=== PATIENT | female | born 1950 | race Caucasian/White ===

== ENCOUNTER → 2017-04-10 | Outpatient (CLI) | payer OTHER ==
[~2017-04-10] VITALS: Ht 165.1 cm; Wt 105.2 kg
[~2017-04-10] MED LIST: ALBU18002 INH; CHOL2000 PO; CHOL400C7 PO; CINN500C13 PO; CLOP1TAB15 PO; DOCU100C PO; FURO-85 PO; GARLTAB3 PO; GLCSUNK PO; GLIM2TAB PO; HYDC25 PO; LISI10TA PO; LSN25 PO; METF500T PO; MILK THISTLE PO; MILK1CAP9 PO; NIAC500T8 PO; OMEG10007 PO; OMEP20CA59 PO; OXYSR10 PO; PROB500T8 PO; SIMV20TA2 PO; SIMV40TA4 PO; STLS PO; TRAM-10 PO; VITA100C2 PO; ZNTT/150 PO
[2017-04-10 12:56] VITALS: Ht 165.1 cm; Wt 105.2 kg
--- NOTE | 2017-04-10 13:45 | PAT Medication Instructions ---
Service Date April 10, 2017. Current Home Medication List Albuterol Sulfate (Proair Respiclick), 2 PUFF INH Q4 PRN for SOB/Wheezing Cholecalciferol (Vitamin D 400 Iu), 400 INTER.UNIT PO QAM Cinnamon (Cinnamon Extract), 1,000 MG PO QAM Fish Oil ([place]-3), 1 CAP PO TID Furosemide (Lasix), 10 MG PO QAM Glimepiride (Amaryl), 0.5 TAB PO QPM Lisinopril (Prinivil *), 2.5 MG PO QAM Metformin Hcl (Glucophage), 500 MG PO BID Milk Thistle (Silybum Marianum (Milk Thistle), 1 CAP PO QAM Niacin (Niacin), 500 MG PO QAM Omeprazole (Prilosec), 20 MG PO QAM Probenecid (Benemid), 500 MG PO BID Simvastatin (Zocor), 20 MG PO QPM Stool Softener (Stool Softener), 100 MG PO QAM Tramadol (Ultram), 50 MG PO Q6H PRN for Pain [Garlic], 1,000 MG PO BID [Milk Thistle], 1,000 MG PO BID Medication Instructions For Your Scheduled Surgery - Hold the following medications 2 weeks prior to surgery: Garlic 1,000 MG PO BID Milk Thistle (Silybum Marianum (Milk Thistle), 1 CAP PO QAM Cinnamon (Cinnamon Extract), 1,000 MG PO QAM Fish Oil ([place]-3), 1 CAP PO TID - Hold the following medications 48 hours prior to surgery: Metformin Hcl (Glucophage), 500 MG PO BID - Hold the following medications day prior to and morning of surgery: Niacin (Niacin), 500 MG PO QAM - Hold the following medications the morning of surgery: Stool Softener (Stool Softener), 100 MG PO QAM Lisinopril (Prinivil *), 2.5 MG PO QAM Furosemide (Lasix), 10 MG PO QAM Cholecalciferol (Vitamin D 400 Iu), 400 INTER.UNIT PO QAM - Take the following medications the morning of surgery with a sip of water: Tramadol (Ultram), 50 MG PO Q6H PRN for Pain (can take up to four hours prior to surgery if needed) Omeprazole (Prilosec), 20 MG PO QAM Albuterol Sulfate (Proair Respiclick), 2 PUFF INH Q4 PRN for SOB/Wheezing ( if needed/bring with you to hospital on day of surgery) Probenecid (Benemid), 500 MG PO BID - Take the following medications as scheduled the night before surgery: Tramadol (Ultram), 50 MG PO Q6H PRN for Pain Simvastatin (Zocor), 20 MG PO QPM Albuterol Sulfate (Proair Respiclick), 2 PUFF INH Q4 PRN for SOB/Wheezing Glimepiride (Amaryl), 0.5 TAB PO QPM Probenecid (Benemid), 500 MG PO BID If you have any questions please call us at [phone] or [phone] ( [place]) or [phone]
[2017-04-10 14:13] LABS: URINE APPEARANCE CLEAR (CLEAR); URINE BILIRUBIN NEG (NEG); URINE COLOR YELLOW; URINE EPITHELIAL CELL AUTO >30 /lpf (0-5); URINE NITRITE NEG (NEG); URINE PH 5.5 (4.5-7.5); URINE SPECIFIC GRAVITY 1.011 (1.000-1.030); UROBILINOGEN NEG (NEG); ZZUR CULT IF INDIC CLEAN CATCH YES
[2017-04-10 14:13] LABS: PROTHROMBIN TIME (PATIENT) 10.6 SECONDS (9.0-12.0)
[2017-04-10 14:15] LABS: MANUAL MICROSCOPIC REQUIRED? NO; REVIEW REQ? NO
== END | disposition home or self-care (01) ==
LOC: C.LAB 08:00 → EDSTATUS 05-13 14:42
PROVIDERS: ATTEND Orthopaedic Surgery Sports Medicine
DX: Z01.818 Encounter for other preprocedural examination (principal); Z79.899 Other long term (current) drug therapy

== ENCOUNTER → 2017-08-19 | Outpatient (CLI) | payer OTHER ==
[~2017-08-19] MED LIST changes: -GLCSUNK PO; -HYDC25 PO; -MILK THISTLE PO; -OXYSR10 PO; -VITA100C2 PO
[2017-08-19 14:39] LABS: BASO % 0.6 %; BASO ABS # 0.04 K/uL (0-0.2); COMPLETE YES; EOS % 1.7 %; HEMATOCRIT 44.4 % (37-47); IG% 0.2 %; LYMPH % 30.2 %; LYMPH ABS # 1.97 K/uL (1.2-3.4); MEAN CELL VOLUME 93.7 fL (80-100); MEAN CORPUSCULAR HEMOGLOBIN 31.9 pg (25-34); MEAN PLATELET VOLUME 10.4 fL (7.4-10.4); MONO % 6.4 %; NEUT % 60.9 %; PLATELET COUNT 218 K/uL (130-400); RED BLOOD COUNT 4.74 M/uL (4.2-5.4); WHITE BLOOD COUNT 6.53 K/uL (4.8-10.8)
[2017-08-19 14:46] LABS: URINE APPEARANCE CLEAR (CLEAR); URINE BILIRUBIN NEG (NEG); URINE COLOR YELLOW; URINE EPITHELIAL CELL AUTO >30 /lpf (0-5); URINE NITRITE NEG (NEG); URINE PH 6.5 (4.5-7.5); URINE SPECIFIC GRAVITY 1.013 (1.000-1.030); UROBILINOGEN NEG (NEG); ZZUR CULT IF INDIC CLEAN CATCH NO
[2017-08-19 14:49] LABS: MANUAL MICROSCOPIC REQUIRED? NO; REVIEW REQ? NO
[2017-08-19 14:50] LABS: PARTIAL THROMBOPLASTIN RATIO 1.1; PROTHROMBIN TIME (PATIENT) 10.6 SECONDS (9.0-12.0)
== END | disposition home or self-care (01) ==
LOC: C.LAB 12:45
PROVIDERS: ATTEND Orthopaedic Surgery Sports Medicine
DX: Z01.818 Encounter for other preprocedural examination (principal)

== ENCOUNTER 2017-09-18 08:47 | Inpatient (IN) | payer OTHER ==
[2017-08-17 15:55] VITALS: BMI 37.0
--- NOTE | 2017-09-17 20:00 | HISTORY & PHYSICAL EXAMINATION ---
DATE OF ADMISSION: 09/18/2017 CHIEF COMPLAINT: Chronic left knee pain. HISTORY OF PRESENT ILLNESS: This is a 67-year-old female patient of Dr. Dalal complaining of chronic left hip pain, longstanding, now progressively getting worse. The patient has failed conservative treatment including narcotics, intra-articular injections. The patient cannot take anti-inflammatories. She has increased pain with weightbearing activities and her pain does interfere with her activities of daily living. PAST MEDICAL HISTORY: Hypertension, asthma, history of a mini stroke, diabetes mellitus, osteoarthritis, acid reflux, and obesity. SOCIAL HISTORY: Nonsmoker, nondrinker. PAST SURGICAL HISTORY: Gallbladder, back surgery, and right total knee replacement. FAMILY HISTORY: Noncontributory. REVIEW OF SYSTEMS: The patient complains of chronic left knee pain, otherwise denies any shortness of breath, chest pain, nausea, vomiting or any other joint complaints. MEDICATIONS: Include ranitidine 150 mg b.i.d. probenecid 500 mg b.i.d., metformin 500 mg twice daily, furosemide 20 mg 1/2 tablet daily, lisinopril 10 mg daily, glimepiride 2 mg 1/2 tablet daily, simvastatin 40 mg daily, Plavix 75 mg daily, tramadol 50 mg daily, over the counter stool softener, vitamin D3, milk thistle, and cinnamon. ALLERGIES: INCLUDE SHE HAS AN ALLERGY TO ASPIRIN AND ANTI-INFLAMMATORIES AND LIPITOR. PHYSICAL EXAMINATION: GENERAL: Well-developed, well-nourished 67-year-old female in no acute distress. She is alert and oriented x3 and pleasant. HEENT: Normocephalic, atraumatic. Extraocular motions are intact. Pupils are equal and reactive to light. HEART: Regular rate and rhythm, no murmurs appreciated. LUNGS: Clear. ABDOMEN: Soft, nontender, bowel sounds present. EXTREMITIES: Left knee reveals minus 5-120 degrees of range of motion. She has a varus deformity with a mild effusion. She has medial joint line tenderness, 5/5 strength. NEUROLOGIC: Neurovascularly, she is intact in her left lower extremity. DIAGNOSES: Left knee end-stage osteoarthritis, hypercholesterolemia, asthma, history of a mini stroke, diabetes mellitus, osteoarthritis, spine problems, neck problems, upper back problems, acid reflux, and obesity. PLAN: The patient was advised of her diagnosis. Indications, risks, benefits, and postop course have all been reviewed. The patient wishes to proceed with her left total knee arthroplasty. Necessary consent forms, preoperative testing and clearances will be obtained. BC
[2017-09-18] VITALS (11 sets, daily range): BP systolic 80–183; BP diastolic 49–104; PULSE 64–93; TEMP 36.2–36.7; O2SAT 80–100; Ht 165.1 cm; Wt 102.2 kg
[~2017-09-18] VITALS: Ht 165.1 cm; Wt 102.2 kg
[~2017-09-18 08:47] MED LIST changes: +ACETAMINOPHEN 500 MG TAB PO SCH; +BUPIVACAINE 0.25% 30 ML VIAL ONE; +BUPIVACAINE 0.5 % 5 MG/1 ML PF 10ML VIAL ONE; +CEFAZOLIN 2000MG IV PUSH 10 ML IV SCH; -CHOL400C7 PO; +FAMOTIDINE 20 MG TAB PO SCH; +GABAPENTIN 300 MG CAP PO SCH; -GARLTAB3 PO; +LACTATED RINGER'S 1000ML 1,000 ML IV SCH; +LACTATED RINGER'S 1000ML 500 ML IV ONE; +LACTATED RINGER'S 1000ML IV SCH; -LSN25 PO; +METOCLOPRAMIDE HCL 10 MG TAB PO SCH; -NIAC500T8 PO; -OMEG10007 PO; -OMEP20CA59 PO; +ROPIVACAINE 5MG/ML 30 ML 150 MG, BUPIVACAINE/EPINEPHR 0.5% MPF 30 ML, KETOROLAC TROMETH... INFIL SCH; -SIMV20TA2 PO; -STLS PO
[2017-09-18] MEDS ORDERED: ONDANSETRON INJ 2 MG/ML 2 ML VIAL ONE (08:55)
[2017-09-18] MEDS ORDERED: PROPOFOL IV EMULSION 10 MG/ML 20 ML VIAL IV ONE ×2 (08:55→11:47)
[2017-09-18] MEDS ORDERED: LIDOCAINE HCL 2% 2 ML VIAL (20MG/ML) ONE ×2 (08:55→11:47)
[2017-09-18] MEDS ORDERED: DEXAMETHASONE SOD INJ 4 MG/ML VIAL ONE (08:55)
[2017-09-18] MEDS ORDERED: FENTANYL CITRATE INJ 50 MCG/1 ML 2 ML VIAL ONE (08:55)
[2017-09-18] MEDS ORDERED: MIDAZOLAM HCL 1 MG/ML 2ML VIAL ONE ×3 (08:55→12:08)
--- NOTE | 2017-09-18 10:15 | History & Physical Bridge Note ---
H&P Re-Evaluation Bridge Note: I have examined the patient, reviewed the History & Physical and in the interval since the performance of the History & Physical I have noted the following changes of clinical significance: No changes noted
[2017-09-18] MEDS ORDERED: ORTHO JOINT ANESTHETIC ONE (10:27)
[2017-09-18] MEDS ORDERED: BACITRACIN 50000 UNIT VIAL ONE (10:27)
[2017-09-18] MEDS ORDERED: POVIDONE-IODINE OP SOLN 30 ML BTL ONE (10:27)
[2017-09-18] MEDS ORDERED: CEFAZOLIN SOD 1 GM VIAL ONE (11:15)
[2017-09-18] MEDS ORDERED: EpHEDrine SULFATE INJ 50 MG/ML AMP IV PRN (12:00)
[2017-09-18] MEDS ORDERED: ONDANSETRON INJ 2 MG/ML 2 ML VIAL IV PRN ×2 (12:00→13:00)
[2017-09-18] MEDS ORDERED: ATROPINE SULFATE 0.1 MG/ML 5ML SYR IV PRN (12:00)
[2017-09-18] MEDS ORDERED: HYDROmorphone INJ 2 MG/ML SYR/VIAL IV PRN (12:00)
[2017-09-18] MEDS ORDERED: PHENYLEPHRINE 100MCG/ML 5ML SYR IV PRN (12:00)
[2017-09-18] MEDS ORDERED: MAGNESIUM HYDROXIDE SUSP 30 ML UDC PO PRN (13:00)
[2017-09-18] MEDS ORDERED: ZOLPIDEM TARTRATE 5 MG TAB PO PRN (13:00)
[2017-09-18] MEDS ORDERED: MoRPHine SULFATE 2 MG/ML CARP IV PRN (13:00)
[2017-09-18] MEDS ORDERED: SOD PHOSPHATE/SOD BIPHOSPHATE ENEMA 132 ML BTL PR PRN (13:00)
[2017-09-18] MEDS ORDERED: OXYCODONE HCL IR 5 MG TAB (IMMEDIATE RELEASE) PO PRN (13:00)
[2017-09-18] MEDS ORDERED: BISACODYL 10 MG SUPP PR PRN (13:00)
--- NOTE | 2017-09-18 13:03 | [facility] Post Operative Brief Note ---
Immediate Operative Summary Operative Date Sep 18, 2017. Pre-Operative Diagnosis Left Knee End-Stage Osteoarthritis Post-Operative Diagnosis Left Knee End-Stage Osteoarthritis Procedure(s) Performed Left Total Knee Arthroplasty Surgeon Dr Gil Receiving Clerk Surgeon(s) Amos Ackerman PA-C Estimated Blood Loss 5CC Findings severe tricompartmental djd oa Specimens A: Left Knee Bone and Tissue Drains 2 hemovac Anesthesia spinal sedation Complication(s) None Disposition Recovery Room / PACU
--- NOTE | 2017-09-18 13:45 | OPERATIVE REPORT ---
DATE OF OPERATION: 09/18/2017 INDICATION FOR PROCEDURE: The patient is a 67-year-old female who presents with chronic progressive osteoarthritis of left knee. She had a right knee replacement and did well with that. Now presents for left knee replacement at this time. Radiographs demonstrate tricompartmental DJD, [id number] medial compartment, varus knee. PREOPERATIVE DIAGNOSIS: End-stage osteoarthritis, left knee. POSTOPERATIVE DIAGNOSIS: End-stage osteoarthritis, left knee. PROCEDURE: Left total knee arthroplasty. SURGEON: Catarino Gil MD. TALENT COORDINATOR: DAISY Garner. ANESTHESIA: Spinal, adductor nerve block and Orthomix. OPERATIVE PROCEDURE: The patient was taken to the operating room, anesthetized under spinal IV sedation. She was placed supine on the operating room table. Pneumatic tourniquet was placed about her obese upper left thigh. Her left lower extremity was prepped and draped in sterile fashion. Knee exam demonstrated she had a 5 degree flexion contracture and flexion to 120 degrees. She had a small type old scar from old trauma years ago right at the tibial tubercle area. The leg was elevated, exsanguinated with Esmarch bandage. Pneumatic tourniquet was raised to 350 mmHg because of the obesity. Skin was incised sharply in a longitudinal fashion. Subcutaneous flaps were elevated. Incision was made through medial retinaculum and extended up in the mid third of the quadriceps tendon and extended down to the medial tibial tubercle. Intraarticular findings demonstrated tricompartmental severe DJD, notch stenosis, chronic ACL tear and chronic medial meniscus tear. She is bone on bone in both medial and lateral compartments and advanced patellofemoral DJD and large osteophytes all compartments. Attention was taken to exposing the knee. The infrapatellar fat pad was resected. The lateral synovial bands were released. The meniscal remnants were resected and the PCL was released and later resected. The fat pad over the anterior femur for placement of the component was resected in order to place our custom cutting guide. After proper retraction, the custom femoral cutting block was pinned in position. We used the Early & Nephew Journey 2.0, total knee arthroplasty system using Fastacashe MR templating, which she was templated for a 4 femur and 3 tibia. With the custom femoral cutting block, pinned in position, a distal femoral cut was made, then we extended the knee, did a subperiosteal peel around the patella and did a measurement with a caliper and then reproduced the width using a freehand cut technique and a 35 patella component. The drill holes were made for the patella component. A small excess lateral facet was beveled off to prevent any impingement. The retraction was placed about the femur again and 4 size cutting block was pinned in place and then the anterior, posterior and chamfer cuts were made. Then the tibia was subluxed and the custom tibial cutting block was pinned in position. The proximal tibial cut was made. Then we assessed ligamentous balance and she needed releases medially which required posteromedial release. There were lot of large osteophytes around the posterior medial tibia that were resected. At this time, the tibia was re-exposed and the 3 tibial trial was externally rotated in line with the tibial tubercle, pinned in position. The punch for the stem was used. Then a 4 femoral trial was inserted, centered and the notch cutting devices were used. We assessed ligaments balance and the MCL was still tight well to the lateral. So we used the lamina bridges and buildings supervisor between the components and then did a minor pie crusting of the MCL to get the appropriate balance. Then a trial reduction with a 30 high flex poly insert trial gave balanced ligaments through full range of motion and the patella tracked centrally. The trials were removed and then the anesthetic cocktail was injected per protocol. Then the knee was copiously irrigated with pulsatile lavage and antibiotic solution and bacitracin. The final components were cemented with Simplex G cement. Final components were the 4 Oxinium Early & Nephew posterior stabilized left femoral component Journey 2.0. The 3 tibial baseplate, the 30 mm high flex poly insert and then the 35 mm dome patella. While the cement cured, we used Betadine soak. Then the knee was again copiously irrigated with antibiotic solution and bacitracin. Two drains were brought out laterally. These connected to Hemovac. The quadriceps tendon and medial retinaculum were then closed with interrupted [id number] #1 Vicryl sutures and the subcutaneous tissues were injected with some of the Orthomix and then closed with interrupted 2-0 Vicryl, skin was closed with solis, sterile dressings applied and the patient tolerated the procedure well. The patient had 0 through 135 degrees range of motion at the completion of the procedure. We also did check the suture closure through full range of motion and the repair was secure. We did use a Silverlon dressing after the staple closure. DAISY Garner was my golf player assistant. He functioned as golf player assistant through the entire procedure. He assisted in soft tissue retraction, instrument management, leg positioning and assisted in the subcutaneous skin closure and would participate in postoperative care of the patient. I attest to the content of the Intraoperative Record and any orders documented therein. Any exception s are noted below.
--- NOTE | 2017-09-18 13:51 | DIAGNOSTIC IMAGING REPORT ---
TWO VIEWS LEFT KNEE CLINICAL HISTORY: Postoperative examination. FINDINGS: AP and crosstable lateral portable views of the left knee are obtained. A left knee arthroplasty is in near anatomic alignment. There has been undersurface remodeling of the patella. No acute fracture is seen. There are expected postoperative changes around the knee including skin clips, a surgical drain, soft tissue edema, and subcutaneous gas. IMPRESSION: Expected postoperative changes status post left knee arthroplasty. No acute fracture is seen. Electronically signed by: Sukh Waller M.D. 09/18/2017 1:50 PM Dictated Date/Time: 09/18/2017 1:50 PM
--- NOTE | 2017-09-18 14:02 | Anesthesiology Progress Note ---
Anesthesia Post Op Note Date & Time Sep 18, 2017 at 14:02 Vital Signs Pain Intensity: 0 Vital Signs Past 12 Hours Date Time Temp Pulse Resp B/P (MAP) Pulse Ox O2 Delivery O2 Flow Rate FiO2 09/18/17 13:40 36.2 63 16 154/91 99 Nasal Cannula 2 09/18/17 13:35 36.2 63 16 164/97 99 Nasal Cannula 2 09/18/17 13:25 64 16 174/92 100 Nasal Cannula 2 09/18/17 13:15 63 16 177/92 100 Nasal Cannula 2 09/18/17 13:05 66 16 169/92 99 Nasal Cannula 2 09/18/17 12:57 36.4 72 16 154/93 100 Nasal Cannula 2 09/18/17 09:16 36.7 79 18 158/99 98 Room Air Notes Mental Status: alert / awake / arousable, participated in evaluation Pt Amnestic to Procedure: Yes Nausea / Vomiting: adequately controlled Pain: adequately controlled Airway Patency, RR, SpO2: stable & adequate BP & HR: stable & adequate Hydration State: stable & adequate Anesthetic Complications: no major complications apparent
[2017-09-18] MEDS: SODIUM CHLORIDE 0.9% 1000ML 1,000 ML IV SCH ×2 (15:11→23:26)
[2017-09-18] MEDS ORDERED: GLUCOSE 10 TABS/TUBE PO PRN ×2 (15:15)
[2017-09-18] MEDS ORDERED: GLUCAGON FOR INJ 1 MG VIAL SQ PRN ×2 (15:15)
[2017-09-18] MEDS ORDERED: ALBUTEROL HFA 8 GM INHALER INH PRN (15:15)
[2017-09-18] MEDS ORDERED: DEXTROSE 50% 50 ML SYR IV PRN ×2 (15:15)
[2017-09-18] MEDS ORDERED: GLUCOSE 40% GEL 15 GM TUBE PO PRN ×2 (15:15)
--- NOTE | 2017-09-18 15:24 | Medical Consult ---
Consultation Date of Consultation: Sep 18, 2017. Attending Physician: Catarino Gil M.D. Reason for Consultation: Post Op Medical Management History of Present Illness 67 year old female who is s/p left TKA today by Dr. Gil. Patient reports increasing left knee pain that failed outpatient conservative measures. She therefore presented for the planned procedure today. Post operatively the patient is doing well. She reports her pain is well controlled. She reports some mild residual numbness to the lower extremities. She denies chest pain and shortness of breath. She reports she had some mild lightheadedness that resolved once she had something to eat. No abdominal pain, nausea, or vomiting. She reports she has voided since surgery. Past Medical/Surgical History Medical Problems: (1) Asthma Status: Chronic (2) DM type 2 (diabetes mellitus, type 2) Status: Chronic (3) GERD (gastroesophageal reflux disease) Status: Chronic (4) Gout Status: Chronic (5) HTN (hypertension) Status: Chronic (6) TIA (transient ischemic attack) Status: Chronic Surgical Problems: (1) H/O tubal ligation Status: Chronic (2) History of back surgery Status: Chronic (3) History of cholecystectomy Status: Chronic (4) Status post total knee replacement, right Status: Chronic Family History Diabetes mellitus BROTHER SISTER FH: CAD (coronary artery disease) FATHER FH: kidney cancer MOTHER Social History Smoking Status: Never Smoker Alcohol Use: none Marital Status: Housing Status: lives with family Allergies Coded Allergies: Aspirin (Verified Allergy, Unknown, HIVES, LOW BLOOD PRESSURE, THROAT SWELLING, 09/18/17) Atorvastatin (Verified Allergy, Unknown, ELEVATED LFT'S, 09/18/17) NSAIDs (Verified Allergy, Unknown, HIVES, LOW BLOOD PRESSURE, THROAT SWELLING, 09/18/17) Home Medications Zantac (Ranitidine HCl) 150 Mg Tab 150 Mg PO BID TAKE DAY OF SURGERY Plavix (Clopidogrel Bisulfate) 75 Mg Tab 75 Mg PO QAM WILL STOP 7 DAYS PRIOR TO SURGERY PER FAMILY Zocor (Simvastatin) 40 Mg Tab 1 Tab PO HS 30 Days Stool Softener (Docusate Sodium) 100 Mg Cap 1 Tab PO QPM HOLD DAY OF SURGERY Vitamin D3 (Cholecalciferol) 2,000 Unit Cap 1 Cap PO QAM 30 Days HOLD DAY OF SURGERY Prinivil (Lisinopril) 10 Mg Tab 1 Tab PO QAM 90 Days HOLD DAY OF SURGERY Proair Respiclick (Albuterol Sulfate) 108 Mcg/Act Aer 2 Puff INH Q4 PRN BRING ON DAY OF SURGERY Cinnamon Extract (Cinnamon) 500 Mg Cap 1,000 Mg PO QAM STOP 2 WEEKS BEFORE SURGERY Milk Thistle (Milk Thistle (Silybum Marianum) 1,000 Mg Cap 2 Cap PO QAM STOP 2 WEEKS BEFORE SURGERY Ultram (Tramadol HCl) 50 Mg Tab 50 Mg PO Q6H PRN MAY TAKE DAY OF SURGERY Lasix (Furosemide) 20 Mg Tab 10 Mg PO QAM HOLD DAY OF SURGERY Benemid (Probenecid) 500 Mg Tab 500 Mg PO BID TAKE DAY OF SURGERY Amaryl (Glimepiride) 2 Mg Tab 0.5 Tab PO QPM Glucophage (Metformin Hcl) 500 Mg Tab 500 Mg PO BID HOLD 48 HOURS BEFORE SURGERY Current Inpatient Medications Current Inpatient Medications Medications (Trade) Dose Ordered Sig/Elicia Route Start Time Stop Time Status Last Admin Dose Admin Lactated Ringer's 1,000 ml @ 15 mls/hr Q24H IV 09/18/17 06:00 09/19/17 05:59 09/18/17 10:01 15 MLS/HR Lactated Ringer's 1,000 ml @ 60 mls/hr [id number] IV 09/18/17 06:00 09/18/17 22:39 Acetaminophen (Tylenol Tab) 1,000 mg PREOP PO 09/18/17 06:00 09/18/17 18:00 09/18/17 09:43 1,000 MG Famotidine (Pepcid Tab) 20 mg PREOP PO 09/18/17 06:00 09/18/17 18:00 09/18/17 09:43 20 MG Gabapentin (Neurontin Cap) 300 mg PREOP PO 09/18/17 06:00 09/18/17 18:00 09/18/17 09:42 300 MG Metoclopramide HCl (Reglan Tab) 10 mg PREOP PO 09/18/17 06:00 09/18/17 18:00 09/18/17 09:42 10 MG Cefazolin Sodium 10 ml @ 2.5 mls/min PREOP IV 09/18/17 06:00 09/18/17 18:00 Ondansetron HCl (Zofran Inj) 4 mg ONE PRN IV 09/18/17 12:00 09/18/17 17:00 Atropine Sulfate (Atropine Sulfate 0.1MG/Ml Inj) 0.5 mg Q1M PRN IV 09/18/17 12:00 09/18/17 17:00 Ephedrine Sulfate (EpHEDrine SULFATE INJ) 5 mg Q5M PRN IV 09/18/17 12:00 09/18/17 17:00 Hydromorphone HCl (Dilaudid Inj) 0.25 mg Q5M PRN IV 09/18/17 12:00 09/18/17 17:00 Phenylephrine HCl (Kevon-Synephrine 500MCG/5ML Syr) 100 mcg Q5M PRN IV 09/18/17 12:00 09/18/17 17:00 Clopidogrel Bisulfate (plAVix TAB) 75 mg QAM PO 09/19/17 09:00 10/19/17 08:59 Docusate Sodium (coLACE CAP) 100 mg QPM PO 09/18/17 21:00 10/18/17 20:59 Furosemide (Lasix Tab) 10 mg QAM PO 09/19/17 09:00 10/19/17 08:59 Lisinopril (Zestril Tab) 10 mg QAM PO 09/19/17 09:00 10/19/17 08:59 Probenecid (Probenecid Tab) 500 mg BID PO 09/18/17 21:00 10/18/17 20:59 Simvastatin (Zocor Tab) 40 mg HS PO 09/18/17 21:00 10/18/17 20:59 UNV Albuterol (Ventolin Hfa Inhaler) 2 puffs Q4H PRN INH 09/18/17 15:15 10/18/17 15:14 Cholecalciferol (Vitamin D Tab) 2,000 inter.unit QAM PO 09/19/17 09:00 10/19/17 08:59 Sodium Chloride 1,000 ml @ 100 mls/hr Q10H IV 09/18/17 15:30 09/19/17 15:29 09/18/17 15:11 100 MLS/HR Cefazolin Sodium 2000 mg/Syringe 10 ml @ 2.5 mls/min Q8H IV 09/18/17 18:00 09/19/17 02:03 Oxycodone HCl (Roxicodone Immediate Rel Tab) 1 TABLET FOR PAIN RATING... Q4H PRN PO 09/18/17 13:00 10/02/17 12:59 Morphine Sulfate (MoRPHine SULFATE INJ) as above Q2H PRN IV 09/18/17 13:00 10/02/17 12:59 UNV Acetaminophen (Tylenol Tab) 1,000 mg Q8 PO 09/18/17 22:00 10/18/17 21:59 Magnesium Hydroxide (Milk Of Magnesia Susp) 30 ml Q6H PRN PO 09/18/17 13:00 10/18/17 12:59 Bisacodyl (Dulcolax Supp) 10 mg DAILY PRN [place] 09/18/17 13:00 10/18/17 12:59 Sodium Biphosphate/ Sodium Phosphate (Fleet Enema) 132 ml DAILY PRN [place] 09/18/17 13:00 10/18/17 12:59 Diphenhydramine HCl (Benadryl Cap) 25 mg Q8H PRN PO 09/18/17 13:00 10/18/17 12:59 Zolpidem Tartrate (Ambien Tab) 5 mg HSZ PRN PO 09/18/17 13:00 10/18/17 12:59 Multivitamins (Multivitamin Tab) 1 tab QAM PO 09/19/17 09:00 10/19/17 08:59 UNV Ondansetron HCl (Zofran Inj) 4 mg Q6H PRN IV 09/18/17 13:00 10/18/17 12:59 Pantoprazole Sodium (Protonix Tab) 40 mg QAM PO 09/19/17 09:00 10/19/17 08:59 UNV Tramadol HCl (Ultram Tab) 1 tablet for pain rating... Q4H PRN PO 09/18/17 13:00 10/18/17 12:59 Rivaroxaban (Xarelto Tab) 10 mg Q24H PO 09/19/17 06:00 10/01/17 05:59 UNV Insulin Aspart (novoLOG ASPART) SLIDING SCALE If C... ACHS SC 09/18/17 17:15 10/18/17 17:14 Glucose (Glucose 40% Gel) 15-30 GRAMS 15 GRAMS... UD PRN PO 09/18/17 15:15 10/18/17 15:14 Glucose (Glucose Chew Tab) 4-8 Tablets 4 Tabl... UD PRN PO 09/18/17 15:15 10/18/17 15:14 Dextrose (Dextrose 50% 50ML Syringe) 25-50ML OF 50% DW IV FOR... UD PRN IV 09/18/17 15:15 10/18/17 15:14 Glucagon (Glucagon Inj) 1 mg UD PRN SQ 09/18/17 15:15 10/18/17 15:14 Review of Systems Constitutional- no fever; no weight loss Eyes- no acute visual changes ENT- no sinus drainage; no pharyngitis Pulmonary- no cough, no wheezing, no shortness of breath Cardiac- no chest pain, no palpitations, no orthopnea, no dependent edema GI- no nausea, no vomiting, no diarrhea, no melena, no hematochezia - no dysuria, no hematuria Musculoskeletal- (+) as noted above Derm- no rashes, no new skin lesions, no changing skin lesions Hematologic- no unusual bruising, no unusual bleeding Lymphatics- no adenopathy Endocrine- no polyuria or polydipsia; no heat or cold intolerance Neuro- no headaches, no focal neurologic symptoms Psych- no anxiety, no depression Physical Exam Date Time Temp Pulse Resp B/P (MAP) Pulse Ox O2 Delivery O2 Flow Rate FiO2 09/18/17 15:00 36.2 93 16 130/92 (105) 100 Nasal Cannula 3.0 09/18/17 14:28 36.3 82 16 123/84 (97) 100 Nasal Cannula 2.0 09/18/17 14:00 100 Nasal Cannula 2.0 09/18/17 14:00 Nasal Cannula 09/18/17 14:00 36.4 74 16 154/90 (111) 100 Nasal Cannula 2.0 09/18/17 13:40 36.2 63 16 154/91 99 Nasal Cannula 2 09/18/17 13:35 36.2 63 16 164/97 99 Nasal Cannula 2 09/18/17 13:25 64 16 174/92 100 Nasal Cannula 2 09/18/17 13:15 63 16 177/92 100 Nasal Cannula 2 09/18/17 13:05 66 16 169/92 99 Nasal Cannula 2 09/18/17 12:57 36.4 72 16 154/93 100 Nasal Cannula 2 09/18/17 09:16 36.7 79 18 158/99 98 Room Air General Appearance: WD/WN, no apparent distress Head: normocephalic, atraumatic Eyes: normal inspection, EOMI, sclerae normal ENT: hearing grossly normal, + pertinent finding (moist mucous membranes) Neck: supple, no JVD, trachea midline Respiratory/Chest: lungs clear, normal breath sounds, no respiratory distress Cardiovascular: regular rate, rhythm, no edema, normal peripheral pulses Abdomen/GI: normal bowel sounds, non tender, soft, no organomegaly Extremities/Musculoskelatal: normal capillary refill, + pertinent finding (s/p left knee surgery, surgical dressing intact, drain in place draining bloody drainage; CSM checks intact to LLE) Neurologic/Psych: no motor/sensory deficits, alert, normal mood/affect, oriented x 3 Skin: normal color, warm/dry Laboratory Results Last 24 Hours Test 09/18/17 09:30 09/18/17 13:17 Bedside Glucose 108 mg/dl 81 mg/dl Assessment & Plan S/P LEFT TKA - POD#0 - activity and wound care orders as per ortho - pain control with bowel regimen - PT/OT - monitor H/H for acute blood loss anemia and transfuse blood products PRN DM - hgb a1c 5.7 06/2017 - hold oral agents and utilize SSI while hospitalized HTN - BP on the low side hold Lasix and Lasix HX TIA - continue Plavix (ok by ortho) and statin DVT PROPHYLAXIS - Xarelto per ortho Thank you for this consultation. We will follow the patient with you during their hospital stay. You can reach a member of the Orthopaedic Hospitalist Team 22/06 via pager @ . ATTENDING ADDENDUM care coordinated with AUDRA Moon please refer to her notes for full details, I agree with her notes patient seen and examined, records reviewed by myself as well on exam, patient seen resting in bed, comfortable no other symptoms VS noted and reviewed oriented x 2, not in distress, speaks in sentences with no effort nor accessory muscle use normal rate, regular rhythm, no murmurs clear breath sounds bilaterally non distended, soft, nontender no bipedal edema, erythema, warmth no neuro deficits ASSESSMENT/PLAN> HYPOTENSION - likely from Oxycodone - hold Oxy, Morphine hold Lasix, Lisinopril - 500cc NSS bolus ordered NSS increased to 125cc/hr complete bedrest ordered for tonight - will monitor closely DM 2 - hold metformin and glimepiride - ISS for now other diagnoses and plan of care as per AUDRA Moon's notes Lexa Leigh MD
[2017-09-18] MEDS ORDERED: INFLUENZA ADMINISTRATION CHARGE ONE (15:45)
[2017-09-18] MEDS ORDERED: MoRPHine SULFATE 4 MG/ML 1 ML CARP\\VIAL IV PRN (15:45)
[2017-09-18] MEDS ORDERED: INFLUENZA VACCINE HIGH DOSE 65+ 0.5 ML SYR IM. ONE (15:45)
[2017-09-18] MEDS ORDERED: INSULIN ASPART 100 UNITS/ML 3 ML PEN SC SCH (16:00)
[2017-09-18 16:15] LABS: CREATININE 0.8 mg/dl (0.60-1.20)
[2017-09-18] MEDS: INSULIN ASPART 100 UNITS/ML 3 ML PEN SC SCH ×2 (17:15→21:00)
[2017-09-18] MEDS ORDERED: SODIUM CHLORIDE 0.9% 500ML 500 ML IV SCH (19:15)
[2017-09-18] MEDS: CEFAZOLIN IV 2,000 MG in SYRINGE 0 ML IV SCH (19:21)
[2017-09-18] MEDS ORDERED: DOCUSATE SODIUM 100 MG CAP PO SCH (21:00)
[2017-09-18] MEDS: DOCUSATE SODIUM 100 MG CAP PO SCH (21:05)
[2017-09-18] MEDS: ACETAMINOPHEN 500 MG TAB PO SCH (21:06)
[2017-09-18] MEDS: PROBENECID 500 MG TAB PO SCH (21:06)
[2017-09-18] MEDS: SIMVASTATIN 40 MG TAB PO SCH (21:06)
[2017-09-19] MEDS: CEFAZOLIN IV 2,000 MG in SYRINGE 0 ML IV SCH (02:55)
[2017-09-19 03:14] VITALS: BP 131/78; PULSE 73; TEMP 36.5; O2SAT 99
[2017-09-19] MEDS: ACETAMINOPHEN 500 MG TAB PO SCH ×3 (06:00→21:29)
[2017-09-19] MEDS ORDERED: RIVAROXABAN 10 MG TAB PO SCH (06:00)
[2017-09-19 07:10] VITALS: BP 135/88; PULSE 75; TEMP 36.7; O2SAT 98
[2017-09-19] MEDS: SODIUM CHLORIDE 0.9% 1000ML 1,000 ML IV SCH (07:35)
[2017-09-19 07:50] LABS: HEMATOCRIT 33.9 % (37-47); MEAN CELL VOLUME 93.6 fL (80-100); MEAN CORPUSCULAR HEMOGLOBIN 30.9 pg (25-34); MEAN PLATELET VOLUME 10.1 fL (7.4-10.4); PLATELET COUNT 198 K/uL (130-400); RED BLOOD COUNT 3.62 M/uL (4.2-5.4); WHITE BLOOD COUNT 7.64 K/uL (4.8-10.8)
[2017-09-19 08:12] LABS: BUN/CREATININE RATIO 17.2 (10-20); CALCIUM 8.2 mg/dl (8.5-10.1); CREATININE 0.97 mg/dl (0.60-1.20); POTASSIUM 3.5 mmol/L (3.5-5.1)
--- NOTE | 2017-09-19 08:32 | Orthopedic Progress Note ---
Orthopedic Progress Note Date of Service Sep 19, 2017. Subjective Post OP Day: 1 Reports: feeling well, calf pain, pain controlled w PO medications, Denies: chest pain, SOB, nausea / vomiting, light headedness Additional Notes: Patient had episode of lightheadedness yesterday, no fall, isolated incident. Medicine D/C'd narcs and will continue tramadol prn, patient states knee is with minimal pain however she is having persistent calf pain which is her only c /o. Objective N/V intact, capillary refill less than 2 sec., dressing C/D/I, A&O x3, toes mobile Pain with calf palpation, neg homans. Date Time Temp Pulse Resp B/P (MAP) Pulse Ox O2 Delivery O2 Flow Rate FiO2 09/19/17 07:10 36.7 75 20 135/88 (104) 98 Room Air 09/19/17 03:14 36.5 73 18 131/78 (95) 99 Room Air 09/18/17 23:15 Room Air 09/18/17 22:48 36.7 64 16 104/66 (79) 97 Room Air 09/18/17 20:27 36.3 66 16 130/82 (98) 99 Room Air 09/18/17 18:25 90/62 (71) 09/18/17 17:20 80/49 (59) 09/18/17 17:07 36.3 88 16 148/94 (112) 97 Room Air 09/18/17 16:15 Room Air 09/18/17 16:00 36.4 75 16 133/85 (101) 100 Nasal Cannula 2.0 09/18/17 15:25 80/49 (59) 09/18/17 15:00 36.2 93 16 130/92 (105) 100 Nasal Cannula 3.0 09/18/17 14:28 36.3 82 16 123/84 (97) 100 Nasal Cannula 2.0 09/18/17 14:00 100 Nasal Cannula 2.0 09/18/17 14:00 Nasal Cannula 09/18/17 14:00 36.4 74 16 154/90 (111) 100 Nasal Cannula 2.0 09/18/17 13:40 36.2 63 16 154/91 99 Nasal Cannula 2 09/18/17 13:35 36.2 63 16 164/97 99 Nasal Cannula 2 09/18/17 13:25 64 16 174/92 100 Nasal Cannula 2 09/18/17 13:15 63 16 177/92 100 Nasal Cannula 2 09/18/17 13:05 66 16 169/92 99 Nasal Cannula 2 09/18/17 12:57 36.4 72 16 154/93 100 Nasal Cannula 2 09/18/17 09:16 36.7 79 18 158/99 98 Room Air Laboratory Results 24 Hours: Test 09/19/17 06:56 Hematocrit 33.9 % Hemoglobin 11.2 g/dL Assessment & Plan Assessment: POD #1, Left TKA Plan: PT/ OT DVT proph- Plavix D/C planning- Home w OPPT As per medicine Will check venous doppler. Inhouse Planning Pain Management: Ultram, PO Tylenol DVT Prophylaxis: TEDs, SCDs, other (Plavix) Discharge Planning Discharge Planning: home with oppt Pain Management: Ultram, PO Tylenol DVT Prophylaxis: TEDs, other (Plavix) Therapy: Physical Therapy, Occupational Therapy
[2017-09-19] MEDS: MULTIVITAMIN TAB PO SCH (08:41)
[2017-09-19] MEDS: PROBENECID 500 MG TAB PO SCH ×2 (08:41→20:33)
[2017-09-19] MEDS: CLOPIDOGREL BISULFATE 75 MG TAB PO SCH (08:41)
[2017-09-19] MEDS: PANTOprazole SOD 40 MG TAB PO SCH (08:42)
[2017-09-19] MEDS: CHOLECALCIFEROL 1000 INTER.UNIT TAB PO SCH (08:42)
[2017-09-19] MEDS: INSULIN ASPART 100 UNITS/ML 3 ML PEN SC SCH ×4 (08:45→20:33)
[2017-09-19] MEDS ORDERED: CINNAMON 1000 MG PO SCH (09:00)
[2017-09-19] MEDS ORDERED: FUROSEMIDE 20 MG TAB PO SCH (09:00)
[2017-09-19] MEDS ORDERED: LISINOPRIL 10 MG TAB PO SCH (09:00)
--- NOTE | 2017-09-19 10:01 | DIAGNOSTIC IMAGING REPORT ---
ULTRASOUND LEFT LOWER EXTREMITY VENOUS CLINICAL HISTORY: Calf pain and swelling status post left knee arthroplasty. COMPARISON STUDY: No priors. TECHNIQUE: Real-time, grayscale, and color Doppler sonography of the deep veins of the left lower extremity was performed from the inguinal crease to the calf. Compression and augmentation were utilized. FINDINGS: There is no sonographic evidence of deep venous thrombosis identified in the left lower extremity. The common femoral, superficial femoral, and popliteal veins are patent and normally compressible. The greater saphenous vein and the profunda femoris vein at the junction with the common femoral vein are clear. The visualized calf veins are patent. IMPRESSION: There is no sonographic evidence of deep venous thrombosis identified in the left lower extremity. Electronically signed by: Sukh Waller M.D. 09/19/2017 10:00 AM Dictated Date/Time: 09/19/2017 10:00 AM
[2017-09-19 11:35] VITALS: BP 142/85; PULSE 84; TEMP 36.7; O2SAT 100
[2017-09-19 15:32] VITALS: BP 144/85; PULSE 86; TEMP 36.5; O2SAT 100
[2017-09-19] MEDS ORDERED: LISINOPRIL 10 MG TAB PO ONE (16:06)
--- NOTE | 2017-09-19 16:18 | Progress Note ---
Medicine Progress Note Date & Time of Visit: Sep 19, 2017 at 16:10. Subjective seen resting in bed, in good spirits states she feels much better today denies dizziness, headache, nausea, chest pain, dyspnea, abdominal pain denies other symptoms Objective Last 8 Hrs Date Time Temp Pulse Resp B/P (MAP) Pulse Ox O2 Delivery O2 Flow Rate FiO2 09/19/17 15:32 36.5 86 16 144/85 (104) 100 Room Air 09/19/17 11:35 36.7 84 17 142/85 (104) 100 Room Air Physical Exam: General- oriented x 3, not in distress, speaks in sentences with no effort Head- atraumatic Eyes- EOMI, anicteric Neck- no JVD Lungs- clear breath sounds bilaterally Heart- regular rhythm; no murmur, normal rate Abdomen- normal bowel sounds, soft, nontender Extremities- no pretibial edema, no calf tenderness Neuro- alert, oriented x 3; no gross focal deficits Skin- warm & dry Laboratory Results: Last 24 Hours Test 09/18/17 17:25 09/18/17 20:35 09/19/17 06:56 09/19/17 08:28 Bedside Glucose 122 mg/dl 120 mg/dl 138 mg/dl White Blood Count 7.64 K/uL Red Blood Count 3.62 M/uL Hemoglobin 11.2 g/dL Hematocrit 33.9 % Mean Corpuscular Volume 93.6 fL Mean Corpuscular Hemoglobin 30.9 pg Mean Corpuscular Hemoglobin Concent 33.0 g/dl RDW Standard Deviation 43.3 fL RDW Coefficient of Variation 12.6 % Platelet Count 198 K/uL Mean Platelet Volume 10.1 fL Sodium Level 138 mmol/L Potassium Level 3.5 mmol/L Chloride Level 104 mmol/L Carbon Dioxide Level 26 mmol/L Anion Gap 8.0 mmol/L Blood Urea Nitrogen 17 mg/dl Creatinine 0.97 mg/dl Est Creatinine Clear Calc Drug Dose 65.8 ml/min Estimated GFR () 69.6 Estimated GFR (Non- 60.0 BUN/Creatinine Ratio 17.2 Random Glucose 110 mg/dl Calcium Level 8.2 mg/dl Test 09/19/17 11:47 Bedside Glucose 92 mg/dl Assessment & Plan S/P LEFT TKA - POD#1 - hypotension resolved resume lisinopril, but hold lasix for now continue IV fluids - monitor Hg DM - hgb a1c 5.7 06/2017 - ISS for now HTN - management per #1 HX TIA - continue Plavix (ok by ortho) and statin DVT PROPHYLAXIS - Xarelto per ortho Thank you for this consultation. We will follow the patient with you during their hospital stay. You can reach a member of the [facility] Hospitalist Team 22/06 via pager @ . Current Inpatient Medications: Current Inpatient Medications Medications (Trade) Dose Ordered Sig/Elicia Route Start Time Stop Time Status Last Admin Dose Admin Clopidogrel Bisulfate (plAVix TAB) 75 mg QAM PO 09/19/17 09:00 10/19/17 08:59 09/19/17 08:41 75 MG Docusate Sodium (coLACE CAP) 100 mg QPM PO 09/18/17 21:00 10/18/17 20:59 09/18/17 21:05 100 MG Probenecid (Probenecid Tab) 500 mg BID PO 09/18/17 21:00 10/18/17 20:59 09/19/17 08:41 500 MG Simvastatin (Zocor Tab) 40 mg HS PO 09/18/17 21:00 10/18/17 20:59 09/18/17 21:06 40 MG Albuterol (Ventolin Hfa Inhaler) 2 puffs Q4H PRN INH 09/18/17 15:15 10/18/17 15:14 Cholecalciferol (Vitamin D Tab) 2,000 inter.unit QAM PO 09/19/17 09:00 10/19/17 08:59 09/19/17 08:42 2,000 INTER.UNIT Acetaminophen (Tylenol Tab) 1,000 mg Q8 PO 09/18/17 22:00 10/18/17 21:59 09/19/17 13:33 1,000 MG Magnesium Hydroxide (Milk Of Magnesia Susp) 30 ml Q6H PRN PO 09/18/17 13:00 10/18/17 12:59 Bisacodyl (Dulcolax Supp) 10 mg DAILY PRN VT 09/18/17 13:00 10/18/17 12:59 Sodium Biphosphate/ Sodium Phosphate (Fleet Enema) 132 ml DAILY PRN VT 09/18/17 13:00 10/18/17 12:59 Diphenhydramine HCl (Benadryl Cap) 25 mg Q8H PRN PO 09/18/17 13:00 10/18/17 12:59 Zolpidem Tartrate (Ambien Tab) 5 mg HSZ PRN PO 09/18/17 13:00 10/18/17 12:59 Multivitamins (Multivitamin Tab) 1 tab QAM PO 09/19/17 09:00 10/19/17 08:59 09/19/17 08:41 1 TAB Ondansetron HCl (Zofran Inj) 4 mg Q6H PRN IV 09/18/17 13:00 10/18/17 12:59 Pantoprazole Sodium (Protonix Tab) 40 mg QAM PO 09/19/17 09:00 10/19/17 08:59 09/19/17 08:42 40 MG Tramadol HCl (Ultram Tab) 1 tablet for pain rating... Q4H PRN PO 09/18/17 13:00 10/18/17 12:59 Insulin Aspart (novoLOG ASPART) SLIDING SCALE If C... ACHS SC 09/18/17 17:15 10/18/17 17:14 09/19/17 13:10 1 UNITS Glucose (Glucose 40% Gel) 15-30 GRAMS 15 GRAMS... UD PRN PO 09/18/17 15:15 10/18/17 15:14 Glucose (Glucose Chew Tab) 4-8 Tablets 4 Tabl... UD PRN PO 09/18/17 15:15 10/18/17 15:14 Dextrose (Dextrose 50% 50ML Syringe) 25-50ML OF 50% DW IV FOR... UD PRN IV 09/18/17 15:15 10/18/17 15:14 Glucagon (Glucagon Inj) 1 mg UD PRN SQ 09/18/17 15:15 10/18/17 15:14
[2017-09-19] MEDS: DOCUSATE SODIUM 100 MG CAP PO SCH (20:33)
[2017-09-19] MEDS: SIMVASTATIN 40 MG TAB PO SCH (20:33)
[2017-09-19] MEDS: TRAMADOL HCL 50 MG TAB PO PRN (20:34)
[2017-09-19 22:46] VITALS: BP 122/73; PULSE 84; TEMP 36.7; O2SAT 96
[2017-09-20] MEDS: TRAMADOL HCL 50 MG TAB PO PRN ×3 (02:14→11:53)
[2017-09-20] MEDS: ACETAMINOPHEN 500 MG TAB PO SCH (06:02)
[2017-09-20 06:04] LABS: HEMATOCRIT 28.7 % (37-47); MEAN CELL VOLUME 93.5 fL (80-100); MEAN CORPUSCULAR HEMOGLOBIN 31.6 pg (25-34); MEAN CORPUSCULAR HGB CONC 33.8 g/dl (32-36); MEAN PLATELET VOLUME 9.7 fL (7.4-10.4); PLATELET COUNT 153 K/uL (130-400); RED BLOOD COUNT 3.07 M/uL (4.2-5.4); WHITE BLOOD COUNT 5.75 K/uL (4.8-10.8)
[2017-09-20 06:39] LABS: CALCIUM 8.3 mg/dl (8.5-10.1); CREATININE 0.8 mg/dl (0.60-1.20); POTASSIUM 3.8 mmol/L (3.5-5.1)
[2017-09-20 06:49] VITALS: BP 129/85; PULSE 90; TEMP 36.9; O2SAT 98
[2017-09-20] MEDS: CLOPIDOGREL BISULFATE 75 MG TAB PO SCH (07:22)
[2017-09-20] MEDS: CHOLECALCIFEROL 1000 INTER.UNIT TAB PO SCH (07:22)
[2017-09-20] MEDS: MULTIVITAMIN TAB PO SCH (07:23)
[2017-09-20] MEDS: PANTOprazole SOD 40 MG TAB PO SCH (07:23)
[2017-09-20] MEDS: PROBENECID 500 MG TAB PO SCH (07:24)
[2017-09-20] MEDS: INSULIN ASPART 100 UNITS/ML 3 ML PEN SC SCH (07:29)
--- NOTE | 2017-09-20 08:58 | Orthopedic Progress Note ---
Orthopedic Progress Note Date of Service Sep 20, 2017. Subjective Post OP Day: 2 Reports: feeling well, pain controlled w PO medications, Denies: complaints, chest pain, SOB, nausea / vomiting, light headedness, calf pain Objective calves soft nontender, N/V intact, capillary refill less than 2 sec., dressing C /D/I, A&O x3, toes mobile SILVERLON IN TACT. Date Time Temp Pulse Resp B/P (MAP) Pulse Ox O2 Delivery O2 Flow Rate FiO2 09/20/17 07:20 Room Air 09/20/17 06:49 36.9 90 17 129/85 (100) 98 Room Air 09/19/17 23:10 Room Air 09/19/17 22:46 36.7 84 16 122/73 (89) 96 Room Air 09/19/17 15:32 36.5 86 16 144/85 (104) 100 Room Air 09/19/17 15:25 Room Air 09/19/17 11:35 36.7 84 17 142/85 (104) 100 Room Air Laboratory Results 24 Hours: Test 09/20/17 05:16 Hematocrit 28.7 % Hemoglobin 9.7 g/dL Assessment & Plan Assessment: POD #2, Left TKA Plan: PT/ OT DVT proph- Plavix D/C planning- Home w OPPT TODAY As per medicine Will check venous doppler, NEGATIVE YESTERDAY. Inhouse Planning Pain Management: Ultram, PO Tylenol DVT Prophylaxis: TEDs, SCDs, other (Plavix) Discharge Planning Discharge Planning: home with oppt Pain Management: Ultram, PO Tylenol DVT Prophylaxis: TEDs, other (Plavix) Therapy: Physical Therapy, Occupational Therapy
[2017-09-20] MEDS ORDERED: ACET-24 PO (09:00)
[2017-09-20] MEDS ORDERED: LISINOPRIL 10 MG TAB PO SCH (09:00)
[2017-09-20] MEDS ORDERED: ULT50X PO (09:00)
--- NOTE | 2017-09-20 09:01 | Discharge Instructions ---
Discharge Instructions Date of Service Sep 20, 2017. Admission Reason for Admission: Left Knee Degenerative Joint Disease Discharge Discharge Diagnosis / Problem: LEFT TKA Discharge Goals Goal(s): Improve function Activity Recommendations Activity Limitations: as noted below . Instructions / Follow-Up Instructions / Follow-Up ACTIVITY RECOMMENDATIONS: SELF CARE INSTRUCTIONS AFTER TOTAL KNEE REPLACEMENT A. You may need to continue a physical therapy program after discharge from the hospital. There are several options available to you. Your doctor will assist you in selecting the best one for you. 1. An out-patient facility 2 to 3 times a week for therapy or home therapy. 2. Continue working on all exercises taught to you in the hospital. Your goals should be to increase bending of your knee to 90 degrees and beyond and to fully straighten your knee. B. You may progress at your own pace from walking with a walker or crutches to a cane; then to no assistive devices. C. Make walking a part of your daily routine. Be up as much as comfortable with rest periods throughout the day. Rest with leg elevation is very important. Use the ice wrap frequently for the first 3-4 weeks. D. There are no restrictions on activities. You may ride in a car, shop, participate in hatch boss and all social activities. E. Wear the long elastic stockings (THERESE hose) 20 hours a day for 2 weeks after surgery. They can be removed several times a day for laundering and for a bath. F. You may shower, no tub baths until cleared by your doctor. SPECIAL CARE INSTRUCTIONS: VERY IMPORTANT TO READ AND REVIEW A. There are a few signs you need to watch for after you are home. Call [facility] if you notice any of the followin. Increased severe knee pain. Some pain is expected especially when you exercise. 2. Increased swelling in your leg or knee; pain or swelling of the calf muscle in either lower leg. 3. Any fluid drainage from the incision. 4. Shortness of breath or chest pain. B. Please call [facility] at if you have any concerns or questions about your operation or recovery. The doctor or his nurse will return your call promptly. C. You must take antibiotics before dental work, bladder, bowel or other surgery. Your doctor will provide you with a permanent care to carry describing this precaution. IMPORTANT: * REMEMBER TO TAKE ASPIRIN, 81 MG, TWICE DAILY FOR 4 WEEKS UNLESS OTHERWISE DIRECTED. THIS IS YOUR BLOOD THINNER. * HIGH RISK PATIENTS MAY BE PRESCRIBED A STRONGER BLOOD THINNER. THIS WILL BE PROVIDED AT DISCHARGE. * CALL IF INCREASED PAIN, REDNESS, DRAINAGE OR FEVER GREATER THAT 101. * WEAR THERESE HOSE 20 HOURS PER DAY FOR 2 WEEKS. * YOU MAY HAVE A LARGE BAND-AID LIKE DRESSING (SILVERON). THIS WILL REMAIN ON YOUR INCISION FOR 7 DAYS, THEN CAN BE REMOVED. IF INCISION IS LEAKING THROUGH DRESSING, CALL THE OFFICE . FOLLOW UP VISIT: If appointment is not already scheduled: Please call [facility] to make a follow-up appointment for 2 weeks after your surgery at . Current Hospital Diet Patient's current hospital diet: Diabetes Type 2 Diet Discharge Diet Recommended Diet: Diabetes Type 2 Diet Procedures Procedures Performed: Left Total Knee Arthroplasty Pending Studies Studies pending at discharge: no Medical Emergencies . Who to Call and When: Medical Emergencies: If at any time you feel your situation is an emergency, please call [phone] immediately. . Non-Emergent Contact Non-Emergency issues call your: Primary Care Provider . "Provider Documentation" section prepared by Amos Ackerman. . VTE Core Measure Inpt VTE Proph given/why not?: Other Anticoagulation (PLAVIX), Bakari Shipman , SCD's [place] Drug Monitoring Program Search Results: patient reviewed within database, no issues identified
[2017-09-20 10:41] VITALS: BP 129/85; PULSE 90; TEMP 36.9; O2SAT 98
== END 2017-09-20 12:00 | disposition home or self-care (01) | DRG 470 ==
LOC: C.ACU 08:47 → C.3E 10:08 → ENRESERV 13:34
PROVIDERS: ADMIT Orthopaedic Surgery Sports Medicine; ATTEND Orthopaedic Surgery Sports Medicine
PROC: 0SRD0J9 Replacement of Left Knee Joint with Synthetic Substitute, Cemented, Open Approach (ICD-10-PCS; principal; 2017-09-18 10:00)
DX: M17.12 Unilateral primary osteoarthritis, left knee (principal); I95.2 Hypotension due to drugs; T40.2X5A Adverse effect of other opioids, initial encounter; E11.9 Type 2 diabetes mellitus without complications; I10 Essential (primary) hypertension; E78.00 Pure hypercholesterolemia, unspecified; K21.9 Gastro-esophageal reflux disease without esophagitis; J45.909 Unspecified asthma, uncomplicated; M10.9 Gout, unspecified; E66.9 Obesity, unspecified; Z96.651 Presence of right artificial knee joint; Z86.73 Personal history of transient ischemic attack (TIA), and cerebral infarction without residual deficits; Z79.02 Long term (current) use of antithrombotics/antiplatelets; Z79.84 Long term (current) use of oral hypoglycemic drugs; Z79.899 Other long term (current) drug therapy; Z88.6 Allergy status to analgesic agent; Z88.8 Allergy status to other drugs, medicaments and biological substances; Z83.3 Family history of diabetes mellitus; Z82.49 Family history of ischemic heart disease and other diseases of the circulatory system; Z80.51 Family history of malignant neoplasm of kidney